=== PATIENT | female | born 1970 | race Two or more races ===

== ENCOUNTER 2018-04-01 11:27 | Inpatient (IN) | payer MEDICAID ==
[~2018-04-01] VITALS: Ht 157.5 cm; Wt 72.6 kg
[2018-04-01 11:28] VITALS: Ht 157.5 cm; Wt 72.6 kg
[2018-04-01 11:38] LABS: microscopic required? NO
[2018-04-01 12:17] LABS: CALCIUM 9.2 mg/dL (8.5-10.1); CARBON DIOXIDE 28.5 mmol/L (21-32); CHLORIDE SERUM 95 mmol/L (98-107); CREATININE SERUM 0.8 mg/dL (0.6-1.0); GFR1 > 60 mL/min; GLUCOSE SERUM 327 mg/dL (74-106); POTASSIUM SERUM 3.8 mmol/L (3.5-5.1); SODIUM SERUM 130 mmol/L (136-145)
[2018-04-01 12:22] LABS: ALKALINE PHOSPHATASE 203 U/L (46-116); ALT/SGPT 170 U/L (14-59); AST/SGOT 297 U/L (15-37); BASOPHIL % 0.3 % (0-2); BILIRUBIN TOTAL 0.8 mg/dL (0.20-1.00); PLATELET COUNT 252 x10^3mcL (130-400); RED CELL DISTRIBUTION WIDTH 12.2 % (11.5-14.5)
[2018-04-01 12:23] LABS: ALBUMIN 3.3 g/dL (3.4-5.0); TOTAL PROTEIN, SERUM 8.4 g/dL (6.4-8.2)
[2018-04-01 12:31] LABS: UA SPECIFIC GRAVITY 1.015 (1.005-1.035); urine erythrocyte NEGATIVE (NEGATIVE)
[2018-04-01 14:27] LABS: T3 TOTAL 0.89 ng/mL
[2018-04-01 14:30] LABS: AMPHETAMINE QUAL UR NONE DETECTED (See below)
[2018-04-01 14:33] LABS: MAGNESIUM 1.7 mg/dL (1.8-2.4); PHOSPHOROUS 3.5 mg/dL (2.5-4.9)
[2018-04-01 14:37] LABS: CHOLESTEROL/HDL RATIO 6.8
[2018-04-01 14:39] LABS: FREE T4 1.12 ng/dL (0.76-1.46); FREE THYROXINE INDEX 2.7 ug/dL (1.4-4.5); T4(THYROXINE) 7.9 ug/dL (4.7-13.3)
[2018-04-01] MEDS ORDERED: METFORMIN HYDR500 M1 (17:54)
[2018-04-01] MEDS ORDERED: GLIPIZIDE2.5 M1 (17:54)
[2018-04-01 18:10] VITALS: BP 141/71
[2018-04-01 19:08] VITALS: BP 114/68
[2018-04-01 22:48] LABS: CALCIUM 8.5 mg/dL (8.5-10.1); CARBON DIOXIDE 30.4 mmol/L (21-32); CHLORIDE SERUM 97 mmol/L (98-107); CREATININE SERUM 0.7 mg/dL (0.6-1.0); GFR1 > 60 mL/min; GLUCOSE SERUM 278 mg/dL (74-106); POTASSIUM SERUM 3.5 mmol/L (3.5-5.1); SODIUM SERUM 132 mmol/L (136-145)
[2018-04-02 05:27] VITALS: BP 135/76
[2018-04-02 07:16] LABS: CALCIUM 8.4 mg/dL (8.5-10.1); CHLORIDE SERUM 100 mmol/L (98-107); CREATININE SERUM 0.6 mg/dL (0.6-1.0); GFR1 > 60 mL/min; GLUCOSE SERUM 247 mg/dL (74-106); MAGNESIUM 1.7 mg/dL (1.8-2.4); PHOSPHOROUS 3.3 mg/dL (2.5-4.9); POTASSIUM SERUM 3.4 mmol/L (3.5-5.1); SODIUM SERUM 135 mmol/L (136-145)
[2018-04-02 07:44] LABS: BASOPHIL % 0.2 % (0-2); PLATELET COUNT 253 x10^3mcL (130-400); RED CELL DISTRIBUTION WIDTH 11.8 % (11.5-14.5)
[2018-04-02 09:21] VITALS: BP 111/66
[2018-04-02 12:44] VITALS: BP 113/70
[2018-04-02 17:16] VITALS: BP 117/61
[2018-04-02 21:44] VITALS: BP 143/76
[2018-04-03 06:05] VITALS: BP 113/62
[2018-04-03 07:32] LABS: CALCIUM 8.8 mg/dL (8.5-10.1); CARBON DIOXIDE 26.2 mmol/L (21-32); CHLORIDE SERUM 103 mmol/L (98-107); CREATININE SERUM 0.6 mg/dL (0.6-1.0); GFR1 > 60 mL/min; GLUCOSE SERUM 222 mg/dL (74-106); MAGNESIUM 1.8 mg/dL (1.8-2.4); PHOSPHOROUS 4.2 mg/dL (2.5-4.9); POTASSIUM SERUM 3.8 mmol/L (3.5-5.1); SODIUM SERUM 138 mmol/L (136-145)
[2018-04-03 07:48] LABS: BASOPHIL % 0.2 % (0-2); PLATELET COUNT 285 x10^3mcL (130-400); RED CELL DISTRIBUTION WIDTH 12.1 % (11.5-14.5)
[2018-04-03 08:23] LABS: BILIRUBIN DIRECT 0.13 mg/dL (0.0-0.2); BILIRUBIN TOTAL 0.56 mg/dL (0.20-1.00); TOTAL PROTEIN, SERUM 7.4 g/dL (6.4-8.2)
[2018-04-03 08:31] LABS: ALBUMIN 2.7 g/dL (3.4-5.0)
[2018-04-03 09:26] VITALS: BP 111/58
[2018-04-03] MEDS ORDERED: LEV500 PO (10:30)
[2018-04-03 10:42] VITALS: BP 111/58
== END 2018-04-03 11:53 | disposition home or self-care (01) | DRG 720 ==
LOC: ED 11:27 → DU 12:58
PROVIDERS: Emergency Medicine; Family Medicine
DX: A41.9 Sepsis, unspecified organism (principal); J18.9 Pneumonia, unspecified organism; E44.0 Moderate protein-calorie malnutrition; E11.65 Type 2 diabetes mellitus with hyperglycemia; E87.1 Hypo-osmolality and hyponatremia; E83.42 Hypomagnesemia; R09.1 Pleurisy; J98.11 Atelectasis; E78.5 Hyperlipidemia, unspecified; R74.0 Nonspecific elevation of levels of transaminase and lactic acid dehydrogenase [LDH]; Z87.891 Personal history of nicotine dependence; Z79.84 Long term (current) use of oral hypoglycemic drugs
CPT/HCPCS: 82962; 83880; 84439; 87804; 94150; G0480; J1815; J1885; J2060; J7030; J7040; Q0092

== ENCOUNTER 2018-04-19 11:47 | Inpatient (IN) | payer MEDICAID ==
[~2018-04-19] VITALS: Ht 157.5 cm; Wt 71.0 kg
[~2018-04-19 11:47] MED LIST: GLIPIZIDE2.5 M1; LEV500 PO; METFORMIN HYDR500 M1
[2018-04-19 12:01] VITALS: Ht 157.5 cm; Wt 71.0 kg
[2018-04-19 14:27] LABS: BASOPHIL % 1.6 % (0-2); RED CELL DISTRIBUTION WIDTH 11.9 % (11.5-14.5)
[2018-04-19 14:31] LABS: PLATELET COUNT 410 x10^3mcL (130-400)
[2018-04-19 14:34] LABS: CALCIUM 9.1 mg/dL (8.5-10.1); CARBON DIOXIDE 28.2 mmol/L (21-32); CHLORIDE SERUM 94 mmol/L (98-107); CREATININE SERUM 0.6 mg/dL (0.6-1.0); GFR1 > 60 mL/min; GLUCOSE SERUM 210 mg/dL (74-106); POTASSIUM SERUM 4.1 mmol/L (3.5-5.1); SODIUM SERUM 132 mmol/L (136-145)
[2018-04-19 14:38] LABS: ALKALINE PHOSPHATASE 99 U/L (46-116); ALT/SGPT 14 U/L (14-59); AST/SGOT 10 U/L (15-37); BILIRUBIN TOTAL 0.5 mg/dL (0.20-1.00)
[2018-04-19 14:41] LABS: ALBUMIN 2.9 g/dL (3.4-5.0); TOTAL PROTEIN, SERUM 8.6 g/dL (6.4-8.2)
[2018-04-19] MEDS ORDERED: GLUCOTROL10 MG PO (16:05)
[2018-04-19] MEDS ORDERED: METFORMIN HCL850 MG PO (16:05)
[2018-04-19 16:37] VITALS: BP 126/78
[2018-04-19 16:49] LABS: CHOLESTEROL/HDL RATIO 5.9; MAGNESIUM 1.7 mg/dL (1.8-2.4); PHOSPHOROUS 3.8 mg/dL (2.5-4.9)
[2018-04-19 19:50] VITALS: BP 101/57
[2018-04-19 22:25] VITALS: BP 101/57
[2018-04-19 23:18] LABS: microscopic required? NO
[2018-04-20 00:43] LABS: urine erythrocyte NEGATIVE (NEGATIVE)
[2018-04-20 06:22] LABS: BASOPHIL % 0.1 % (0-2); PLATELET COUNT 365 x10^3mcL (130-400); RED CELL DISTRIBUTION WIDTH 11.9 % (11.5-14.5)
[2018-04-20 06:48] LABS: CALCIUM 8.7 mg/dL (8.5-10.1); CHLORIDE SERUM 103 mmol/L (98-107); CREATININE SERUM 0.5 mg/dL (0.6-1.0); GFR1 > 60 mL/min; GLUCOSE SERUM 169 mg/dL (74-106); MAGNESIUM 1.7 mg/dL (1.8-2.4); PHOSPHOROUS 3.8 mg/dL (2.5-4.9); POTASSIUM SERUM 3.7 mmol/L (3.5-5.1); SODIUM SERUM 138 mmol/L (136-145)
[2018-04-20 07:20] VITALS: BP 99/63
[2018-04-20 08:54] VITALS: BP 111/69
[2018-04-20 17:04] VITALS: BP 131/75
[2018-04-20 22:04] VITALS: BP 112/64
[2018-04-21 06:06] VITALS: BP 111/40
[2018-04-21 06:53] LABS: BASOPHIL % 0.2 % (0-2); PLATELET COUNT 368 x10^3mcL (130-400); RED CELL DISTRIBUTION WIDTH 12.2 % (11.5-14.5)
[2018-04-21 07:19] LABS: CALCIUM 8.8 mg/dL (8.5-10.1); CARBON DIOXIDE 26.7 mmol/L (21-32); CHLORIDE SERUM 101 mmol/L (98-107); CREATININE SERUM 0.6 mg/dL (0.6-1.0); GFR1 > 60 mL/min; GLUCOSE SERUM 172 mg/dL (74-106); MAGNESIUM 1.7 mg/dL (1.8-2.4); PHOSPHOROUS 4.3 mg/dL (2.5-4.9); POTASSIUM SERUM 3.5 mmol/L (3.5-5.1); SODIUM SERUM 139 mmol/L (136-145)
[2018-04-21 09:38] VITALS: BP 115/68
[2018-04-21 17:11] VITALS: BP 124/68
[2018-04-21 21:17] VITALS: BP 130/77
[2018-04-22 05:28] VITALS: BP 132/83
[2018-04-22 07:14] LABS: CALCIUM 8.5 mg/dL (8.5-10.1); CHLORIDE SERUM 101 mmol/L (98-107); CREATININE SERUM 0.6 mg/dL (0.6-1.0); GFR1 > 60 mL/min; GLUCOSE SERUM 200 mg/dL (74-106); POTASSIUM SERUM 3.4 mmol/L (3.5-5.1); SODIUM SERUM 138 mmol/L (136-145)
[2018-04-22 07:20] LABS: BASOPHIL % 0.2 % (0-2); PLATELET COUNT 366 x10^3mcL (130-400); RED CELL DISTRIBUTION WIDTH 12.2 % (11.5-14.5)
[2018-04-22 08:05] VITALS: BP 113/79
[2018-04-22 17:14] VITALS: BP 132/70
[2018-04-22 20:55] VITALS: BP 121/77
[2018-04-23 05:37] VITALS: BP 139/84
[2018-04-23 08:52] VITALS: BP 123/72
[2018-04-23 17:47] VITALS: BP 123/72
[2018-04-23 18:10] VITALS: BP 121/84
[2018-04-23 20:33] VITALS: BP 120/75
[2018-04-24 06:17] VITALS: BP 133/82
[2018-04-24 07:06] LABS: CALCIUM 8.9 mg/dL (8.5-10.1); CARBON DIOXIDE 28.1 mmol/L (21-32); CHLORIDE SERUM 101 mmol/L (98-107); CREATININE SERUM 0.6 mg/dL (0.6-1.0); GFR1 > 60 mL/min; GLUCOSE SERUM 196 mg/dL (74-106); POTASSIUM SERUM 3.8 mmol/L (3.5-5.1); SODIUM SERUM 138 mmol/L (136-145)
[2018-04-24 07:29] LABS: BASOPHIL % 0.1 % (0-2); PLATELET COUNT 377 x10^3mcL (130-400); RED CELL DISTRIBUTION WIDTH 12.3 % (11.5-14.5)
[2018-04-24 10:40] VITALS: BP 117/72
[2018-04-24 16:32] VITALS: BP 113/79
[2018-04-24 20:38] VITALS: BP 139/81
[2018-04-25 05:36] VITALS: BP 121/77
[2018-04-25 10:09] VITALS: BP 102/60
[2018-04-25 16:54] VITALS: BP 128/79
[2018-04-25 20:45] VITALS: BP 122/77
[2018-04-26 06:08] VITALS: BP 115/71
[2018-04-26 06:09] LABS: CALCIUM 9.2 mg/dL (8.5-10.1); CARBON DIOXIDE 28.4 mmol/L (21-32); CHLORIDE SERUM 100 mmol/L (98-107); CREATININE SERUM 0.6 mg/dL (0.6-1.0); GFR1 > 60 mL/min; GLUCOSE SERUM 182 mg/dL (74-106); POTASSIUM SERUM 3.8 mmol/L (3.5-5.1); SODIUM SERUM 137 mmol/L (136-145)
[2018-04-26 09:16] VITALS: BP 95/55
[2018-04-26 11:20] LABS: BASOPHIL % 0.2 % (0-2); PLATELET COUNT 393 x10^3mcL (130-400); RED CELL DISTRIBUTION WIDTH 12.6 % (11.5-14.5)
[2018-04-26 13:54] VITALS: BP 95/55
[2018-04-26 16:33] VITALS: BP 119/71
[2018-04-26 21:14] VITALS: BP 117/73
[2018-04-27 05:05] VITALS: BP 122/68
[2018-04-27 06:56] LABS: CALCIUM 9.1 mg/dL (8.5-10.1); CARBON DIOXIDE 26.3 mmol/L (21-32); CHLORIDE SERUM 101 mmol/L (98-107); CREATININE SERUM 0.7 mg/dL (0.6-1.0); GFR1 > 60 mL/min; GLUCOSE SERUM 188 mg/dL (74-106); MAGNESIUM 1.8 mg/dL (1.8-2.4); PHOSPHOROUS 4.8 mg/dL (2.5-4.9); SODIUM SERUM 137 mmol/L (136-145)
[2018-04-27 07:29] LABS: BASOPHIL % 0.3 % (0-2); RED CELL DISTRIBUTION WIDTH 11.7 % (11.5-14.5)
[2018-04-27 07:35] LABS: PLATELET COUNT 417 x10^3mcL (130-400)
[2018-04-27 08:12] VITALS: BP 120/76
[2018-04-27 12:27] VITALS: BP 118/70
[2018-04-27 15:41] VITALS: BP 117/72
[2018-04-27 17:38] VITALS: BP 117/72
[2018-04-27] MEDS ORDERED: LEVAQUIN750 MG PO (18:07)
== END 2018-04-27 18:50 | disposition home or self-care (01) | DRG 720 ==
LOC: ED 11:47 → MU 15:16
PROVIDERS: Emergency Medicine; General Practice; Internal Medicine
DX: A41.9 Sepsis, unspecified organism (principal); J96.01 Acute respiratory failure with hypoxia; J69.0 Pneumonitis due to inhalation of food and vomit; E44.0 Moderate protein-calorie malnutrition; E83.42 Hypomagnesemia; E11.9 Type 2 diabetes mellitus without complications; D47.3 Essential (hemorrhagic) thrombocythemia; E87.1 Hypo-osmolality and hyponatremia; E87.6 Hypokalemia; E78.5 Hyperlipidemia, unspecified; Z68.29 Body mass index [BMI] 29.0-29.9, adult; Z79.84 Long term (current) use of oral hypoglycemic drugs
CPT/HCPCS: 82962; 83880; 86480; 86580; 87116; 87206; 94150; J0295; J1644; J1956; J7030; J7620; Q0092